=== PATIENT | female | born 1995 | race Caucasian/White ===

== ENCOUNTER 2018-01-10 19:34 | Emergency (ER) | END 2018-01-10 21:59 | disposition home or self-care (01) ==

== ENCOUNTER 2018-06-03 23:09 | Emergency (ER) | payer OTHER ==
[~2018-06-03] VITALS: Wt 112.2 kg
[~2018-06-03 23:09] MED LIST: D-ME473S2 PO; FLUT9.9S NASAL; GUAI1TBM12 PO; PHEN177S43 MT; PREN-29 PO
[2018-06-04] MEDS ORDERED: KETOROLAC 60 MG INJ IM STA (02:49)
[2018-06-04] MEDS ORDERED: D-ME473S2 PO (03:16)
[2018-06-04] MEDS ORDERED: AMOX500C2 PO (03:16)
[2018-06-04] MEDS ORDERED: IBUP-1542 PO (03:16)
[2018-06-04 03:25] VITALS: BP 143/101; PULSE 79; RESP 20
--- NOTE | 2018-06-05 14:06 | ERD ---
ER Documentation Chief Complaint Chief Complaint R EAR PAIN X'S 1 DAY HPI 23-year-old female patient with no significant past medical history presents to the ED stating that she has had a dry cough for 1 week, rhinorrhea and has now developed right ear pain. Patient describes it as achy. Currently rates it a 5 out of 10. Reports that she has not use any Q-tips. Reports that she is been taking Robitussin, NyQuil without any relief. Denies any sick contacts. Denies any fever, chills, nausea, vomiting, diarrhea, neck stiffness, abdominal pain, chest pain, shortness of breath. ROS All systems reviewed and are negative except as per history of present illness. Medications Home Meds Active Scripts Dextromethorphan Hb-Promethazine Hcl* (Promethazine DM* Syrup) 473 Ml Syrup, 5 ML PO Q6 PRN for COUGH, #120 ML Prov:ALFIE SANDERS-C 06/04/18 Amoxicillin* (Amoxicillin*) 500 Mg Cap, 500 MG PO TID for 10 Days, CAP Prov:ALFIE SANDERS-C 06/04/18 Ibuprofen* (Motrin*) 600 Mg Tab, 600 MG PO Q6, #30 TAB Prov:ALFIE SANDERS PA-C 06/04/18 Phenol* (Chloraseptic* Kenyon) 177 Ml Kenyon.pump, 5 SPRAY MT Q2H PRN for SORE THROAT for 3 Days, #177 BOTTLE Prov:JEANETTE,DENNY 01/10/18 Fluticasone Propionate (Flonase Allergy Relief) 9.9 Ml Kenyon.susp, 1 SPRAY NASAL BID, #1 BOTTLE TO EACH NOSTRIL Prov:JEANETTE,DENNY 01/10/18 Dextromethorphan Hb-Promethazine Hcl* (Promethazine DM* Syrup) 473 Ml Syrup, 5 ML PO Q6 PRN for COUGH for 5 Days, #150 ML Prov:JEANETTE,DENNY 01/10/18 Guaifenesin/Dextromethorphan (Mucinex Dm ER 1,200-60 mg Tab) 1 Each Tbmp.12hr, 1 EACH PO BID for 5 Days, #20 TAB Prov:JEANETTE,DENNY 01/10/18 Reported Medications Vit-Fe Fumarate-FA* (Adonay Tablet*) 1 Tab Tablet, 1 TAB PO DAILY, TAB 03/31/14 Allergies Allergies: Coded Allergies: No Known Allergy (Unverified , 03/31/14) PMhx/Soc Medical and Surgical Hx: pt denies Medical Hx, pt denies Surgical Hx History of Surgery: No Anesthesia Reaction: No Hx Neurological Disorder: No Hx Cardiac Disorders: No Hx Psychiatric Problems: No Hx Miscellaneous Medical Probl: No Hx Alcohol Use: No Hx Substance Use: No Hx Tobacco Use: No Smoking Status: Never smoker FmHx Family History: No diabetes, No coronary disease Physical Exam Vitals Vital Signs Date Temp Pulse Resp B/P (MAP) Pulse Ox O2 O2 Flow FiO2 Time Delivery Rate 06/04/18 98.8 79 20 143/101 100 Room Air 03:25 (115) 06/03/18 97.7 88 20 146/90 98 23:16 (108) Physical Exam Const: [id number], well-nourished. In no acute distress. Head: Atraumatic, normocephalic Eyes: Normal Conjunctiva without injection. No purulent discharge. PERRL. EOMI ENT: Normal external ear. Ear canal without erythema. Tympanic membrane pearly owen without effusion or bulging. Nasal canal clear with normal turbinates. Moist oropharynx without tonsillar exudates. Non-erythematous pharynx. Uvula midline. No drooling. No trismus. Neck: Full range of motion. No meningismus. No cervical lymphadenopathy. Resp: Clear to auscultation bilaterally. No wheezing, rhonchi, rales, or crackles. No accessory muscle use. No retractions. Cardio: Regular rate and rhythm. No murmurs, rubs or gallops. Abd: Soft, non tender, non distended. Normal bowel sounds. No palpable masses. No rebound tenderness. No guarding. Skin: No petechiae or rashes Back: No midline tenderness. No CVA tenderness. Ext: No cyanosis, or edema. Neur: Awake and alert. Psych: Normal Mood and Affect Results 24 hrs Laboratory Tests Test 06/04/18 03:02 POC Beta HCG, Qualitative NEGATIVE Current Medications Medications Dose Sig/Jose Start Time Status Last (Trade) Ordered Route PRN Stop Time Admin Dose Reason Admin Ketorolac 60 mg ONCE STAT 06/04/18 DC 06/04/18 Tromethamine IM 02:49 03:09 (Toradol) 06/04/18 02:50 Procedures/MDM 23-year-old female patient with no significant past medical history presents the ED complaining of dry cough, rhinorrhea, right ear pain. Patient is afebrile and nontoxic-appearing. Patient's physical exam is consistent with otitis media secondary to viral URI. Patient does not have tenderness to palpation of tragus or mastoid. Low suspicion for otitis externa or mastoiditis. Patient's physical exam include lungs which were clear to auscultation and a normal pulse oximetry. Patient is speaking in full sentences. There is a low suspicion for tympanic membrane rupture, pneumonia, epiglottitis, croup, viral/strep pharyngitis, sinusitis, peritonsillar abscess, retropharyngeal abscess, meningitis, sepsis, acute abdomen or other emergent conditions. Diagnosis: Right Ear Pain, Cough Discharge medications: Promethazine DM, Ibuprofen, Amoxicillin Follow up with primary care physician in 1-2 days. Instructed patient to return to the ED sooner for any worsening symptoms. Patient's questions were answered. Patient is hemodynamically stable. Patient understood and agreed with discharge plan. Patient discharged stable. Disclaimer: Inadvertent spelling and grammatical errors are likely due to EHR/dictation software use and do not reflect on the overall quality of patient care. Also, please note that the electronic time recorded on this note does not necessarily reflect the actual time of the patient encounter. Departure Diagnosis: Primary Impression: Right ear pain Additional Impression: Cough Condition: Stable Patient Instructions: Otitis Media, Abx Tx (Adult), Uri, Viral, No Abx (Adult) Referrals: [facility] YOU HAVE RECEIVED A MEDICAL SCREENING EXAM AND THE RESULTS INDICATE THAT YOU DO NOT HAVE A CONDITION THAT REQUIRES URGENT TREATMENT IN THE EMERGENCY DEPARTMENT. FURTHER EVALUATION AND TREATMENT OF YOUR CONDITION CAN WAIT UNTIL YOU ARE SEEN IN YOUR DOCTORS OFFICE WITHIN THE NEXT 1-2 DAYS. IT IS YOUR RESPONSIBILITY TO MAKE AN APPOINTMENT FOR FOLOW-UP CARE. IF YOU HAVE A PRIMARY DOCTOR --you should call your primary doctor and schedule an appointment IF YOU DO NOT HAVE A PRIMARY DOCTOR YOU CAN CALL OUR PHYSICIAN REFERRAL HOTLINE AT IF YOU CAN NOT AFFORD TO SEE A PHYSICIAN YOU CAN CHOSE FROM THE FOLLOWING [facility] [address] [facility] [address] [facility] [address] [facility] [address] [facility] [address] [facility]. [facility]. [address] [facility]. [facility] YOU HAVE RECEIVED A MEDICAL SCREENING EXAM AND THE RESULTS INDICATE THAT YOU DO NOT HAVE A CONDITION THAT REQUIRES URGENT TREATMENT IN THE EMERGENCY DEPARTMENT. FURTHER EVALUATION AND TREATMENT OF YOUR CONDITION CAN WAIT UNTIL YOU ARE SEEN IN YOUR DOCTORS OFFICE WITHIN THE NEXT 1-2 DAYS. IT IS YOUR RESPONSIBILITY TO MAKE AN APPOINTMENT FOR FOLOW-UP CARE. IF YOU HAVE A PRIMARY DOCTOR --you should call your primary doctor and schedule and appointment IF YOU DO NOT HAVE A PRIMARY DOCTOR YOU CAN CALL OUR PHYSICIAN REFERRAL HOTLINE AT . IF YOU CAN NOT AFFORD TO SEE A PHYSICIAN YOU CAN CHOSE FROM THE FOLLOWING [facility] INSTITUTIONS: [facility] [address] [place] [address] [facility] [address] [place] [address] [facility] [address] [place] [address] [facility] URGENT CARE/SPECIALTIES Additional Instructions: Call your primary care doctor TOMORROW for an appointment during the next 2-3 days.See the doctor sooner or return here if your condition worsens before your appointment time. ALFIE SANDERS PA-C Jun 05, 2018 14:06
== END 2018-06-04 03:27 | disposition home or self-care (01) ==
LOC: FTE 23:09
DX: H92.01 Otalgia, right ear (principal); R05 Cough
CPT/HCPCS: 81025; 96372; J1885; Z7502

== ENCOUNTER 2019-01-09 09:55 | Emergency (ER) | payer OTHER ==
[~2019-01-09] VITALS: Ht 157.5 cm; Wt 90.0 kg
[~2019-01-09 09:55] MED LIST changes: +AMOX500C2 PO; +GUAI120S25 PO; +IBUP-1542 PO; +MENT7.6L MM
[2019-01-09 10:03] VITALS: BP 140/76; PULSE 18; RESP 18; Ht 157.5 cm; Wt 90.0 kg
== END 2019-01-09 10:58 | disposition home or self-care (01) ==
LOC: FTE 09:55
DX: J06.9 Acute upper respiratory infection, unspecified (principal)
CPT/HCPCS: 99282